=== PATIENT | male | born 1965 | race African-American/Black ===

== ENCOUNTER 2018-02-18 16:01 | Inpatient (IN) | payer OTHER ==
[2018-02-18] MEDS ORDERED: GLUCOSE GEL 15 GRAM TUBE PO ×2 (17:00)
[2018-02-18] MEDS ORDERED: NACL 0.9% 3 ML SYG IV (17:00)
[2018-02-18] MEDS ORDERED: GLUCOSE GEL 15 GRAM TUBE BUCCAL (17:00)
[2018-02-18] MEDS ORDERED: GLUCAGON 1 MG INJ IM (17:00)
[2018-02-18] MEDS ORDERED: DEXTROSE 50% 50 ML SYRINGE IV ×2 (17:00)
[2018-02-18] MEDS: OXYCODONE/ACETAMINOPHEN (5/325) TAB PO (17:37)
[2018-02-18] MEDS: INSULIN ASPART [NOVOLOG] 3 ML PEN SC ×3 (17:41→20:20)
[2018-02-18 17:47] LABS: ADD MAN DIFF? NO
[2018-02-18 17:49] LABS: BASOPHILS % 0.7 % (0.0-2.0); EOSINOPHILS # 0.2 10^3/ul (0.0-0.5); EOSINOPHILS % 3.7 % (0.0-7.0); HEMATOCRIT 38.8 % (42.0-52.0); HEMOGLOBIN 13.1 g/dl (14.0-18.0); LYMPHOCYTES # 2.6 10^3/ul (0.8-2.9); MEAN CORPUSCULAR HEMOGLOBIN 29.7 pg (29.0-33.0); MEAN CORPUSCULAR HGB CONC 33.8 g/dl (32.0-37.0); MEAN PLATELET VOLUME 9.2 fl (7.4-10.4); MONOCYTE # 0.6 10^3/ul (0.3-0.9); MONOCYTES % 11.2 % (0.0-11.0); NEUTROPHIL # 2.2 10^3/ul (1.6-7.5); NEUTROPHILS % 38.2 % (39.0-77.0); PLATELET COUNT 260 10^3/UL (140-415); RED BLOOD COUNT 4.41 10^6/ul (4.70-6.10); RED CELL DISTRIBUTION WIDTH 12.6 % (11.5-14.5)
[2018-02-18 17:49] LABS: WHITE BLOOD COUNT 5.7 10^3/ul (4.8-10.8)
[2018-02-18 18:05] LABS: ALANINE AMINOTRANSFERASE 69 IU/L (13-69); ALBUMIN/GLOBULIN RATIO 1.25; ALKALINE PHOSPHATASE 94 IU/L (42-121); ANION GAP 13 (8-16); ASPARTATE AMINO TRANSFERASE 33 IU/L (15-46); BLOOD UREA NITROGEN 18 mg/dl (7-20); CALCIUM 9.2 mg/dl (8.4-10.2); CARBON DIOXIDE 29 mmol/L (21-31); CHLORIDE 97 mmol/L (97-110); CREATININE 0.69 mg/dl (0.61-1.24); GLUCOSE 365 mg/dl (70-220); POTASSIUM 4.3 mmol/L (3.5-5.1); SODIUM 135 mmol/L (135-144); TOTAL PROTEIN 7.2 g/dl (6.1-8.1)
[2018-02-18] MEDS: FAMOTIDINE 20 MG TAB PO (20:19)
[2018-02-18] MEDS: INSULIN GLARGINE [LANtus] 3 ML PEN SC (20:24)
[2018-02-18] MEDS ORDERED: VANCOMYCIN IV PER PHARMACY XX (20:30)
[2018-02-18 21:17] LABS: C-REACTIVE PROTEIN < 0.5 mg/dl (0.0-0.9)
[2018-02-18] MEDS: VANCOMYCIN 2 GM in SOD CHLORIDE 0.9% 500 ML IVPB (21:42)
[2018-02-18] MEDS: MUPIROCIN 2% 22 GM OINT TOP (21:42)
[2018-02-18] MEDS: oxyCODONE (CR) 15 MG TAB [oxyCONTIN] PO (22:01)
[2018-02-18 22:37] LABS: ERYTHROCYTE SEDIMENTATION RATE 18 mm/Hr (0-20)
[2018-02-19] MEDS: ACCU-CHEK XX (02:00)
[2018-02-19 06:11] LABS: ADD MAN DIFF? NO
[2018-02-19 06:19] LABS: BASOPHILS % 0.6 % (0.0-2.0); EOSINOPHILS # 0.2 10^3/ul (0.0-0.5); EOSINOPHILS % 3.3 % (0.0-7.0); HEMATOCRIT 39.8 % (42.0-52.0); HEMOGLOBIN 13.4 g/dl (14.0-18.0); LYMPHOCYTES # 3.2 10^3/ul (0.8-2.9); LYMPHOCYTES % 50.2 % (15.0-51.0); MEAN CORPUSCULAR HGB CONC 33.7 g/dl (32.0-37.0); MEAN PLATELET VOLUME 9.4 fl (7.4-10.4); MONOCYTE # 0.8 10^3/ul (0.3-0.9); MONOCYTES % 12.1 % (0.0-11.0); NEUTROPHIL # 2.2 10^3/ul (1.6-7.5); NEUTROPHILS % 33.6 % (39.0-77.0); PLATELET COUNT 260 10^3/UL (140-415); RED BLOOD COUNT 4.47 10^6/ul (4.70-6.10); RED CELL DISTRIBUTION WIDTH 12.7 % (11.5-14.5)
[2018-02-19 06:19] LABS: WHITE BLOOD COUNT 6.4 10^3/ul (4.8-10.8)
[2018-02-19] MEDS: oxyCODONE (CR) 15 MG TAB [oxyCONTIN] PO ×3 (06:19→22:20)
[2018-02-19 06:41] LABS: ALANINE AMINOTRANSFERASE 66 IU/L (13-69); ALBUMIN 3.8 g/dl (3.3-4.9); ALBUMIN/GLOBULIN RATIO 1.11; ALKALINE PHOSPHATASE 92 IU/L (42-121); ANION GAP 15 (8-16); ASPARTATE AMINO TRANSFERASE 36 IU/L (15-46); BILIRUBIN,INDIRECT 0.1 mg/dl (0-1.1); BILIRUBIN,TOTAL 0.1 mg/dl (0.2-1.3); BLOOD UREA NITROGEN 24 mg/dl (7-20); CALCIUM 9.2 mg/dl (8.4-10.2); CARBON DIOXIDE 28 mmol/L (21-31); CHLORIDE 100 mmol/L (97-110); CREATININE 0.88 mg/dl (0.61-1.24); GLUCOSE 341 mg/dl (70-220); POTASSIUM 4.8 mmol/L (3.5-5.1); SODIUM 138 mmol/L (135-144); TOTAL PROTEIN 7.2 g/dl (6.1-8.1)
[2018-02-19] MEDS: INSULIN ASPART [NOVOLOG] 3 ML PEN SC ×7 (07:40→20:24)
[2018-02-19] MEDS: LISINOPRIL 10 MG TAB PO (08:15)
[2018-02-19] MEDS: ASPIRIN (EC) 81 MG TAB PO (08:15)
[2018-02-19] MEDS: FAMOTIDINE 20 MG TAB PO ×2 (08:15→20:23)
[2018-02-19] MEDS: OXYCODONE/ACETAMINOPHEN (5/325) TAB PO ×2 (08:16→20:19)
[2018-02-19] MEDS: ENOXAPARIN 40 MG/0.4 ML SYG SC (08:18)
[2018-02-19] MEDS: MUPIROCIN 2% 22 GM OINT TOP ×3 (08:18→22:21)
[2018-02-19] MEDS ORDERED: VANCOMYCIN 1.75 GM in SOD CHLORIDE 0.9% 500 ML IVPB (09:00)
[2018-02-19] MEDS ORDERED: VANCOMYCIN 1.5 GM in SOD CHLORIDE 0.9% 250 ML IVPB (10:30)
[2018-02-19] MEDS: SODIUM HYPOCHLORITE 1/40% 1L IRRIG IRR ×3 (10:40→22:21)
[2018-02-19] MEDS: VANCOMYCIN 1.25 GM in SOD CHLORIDE 0.9% 250 ML IVPB ×2 (10:57→18:17)
[2018-02-19] MEDS: DIPHENHYDRAMINE 25 MG CAP PO ×2 (11:20→20:19)
[2018-02-19] MEDS: LEVOFLOXACIN 500 MG TAB PO (14:40)
[2018-02-19] MEDS: INSULIN GLARGINE [LANtus] 3 ML PEN SC (20:21)
[2018-02-20] MEDS: ACCU-CHEK XX (02:00)
[2018-02-20 02:08] LABS: VANCOMYCIN,TROUGH 15.2 ug/ml (10.0-20.0)
[2018-02-20] MEDS: VANCOMYCIN 1.25 GM in SOD CHLORIDE 0.9% 250 ML IVPB ×3 (02:47→18:14)
[2018-02-20] MEDS: LEVOFLOXACIN 500 MG TAB PO (05:47)
[2018-02-20] MEDS: oxyCODONE (CR) 15 MG TAB [oxyCONTIN] PO ×3 (05:48→23:05)
[2018-02-20 06:03] LABS: BLOOD UREA NITROGEN 34 mg/dl (7-20)
[2018-02-20 06:03] LABS: CREATININE 0.97 mg/dl (0.61-1.24)
[2018-02-20] MEDS: INSULIN ASPART [NOVOLOG] 3 ML PEN SC ×7 (07:55→21:00)
[2018-02-20] MEDS: LISINOPRIL 10 MG TAB PO (08:23)
[2018-02-20] MEDS: ASPIRIN (EC) 81 MG TAB PO (08:24)
[2018-02-20] MEDS: ENOXAPARIN 40 MG/0.4 ML SYG SC (08:25)
[2018-02-20] MEDS: FAMOTIDINE 20 MG TAB PO ×2 (08:31→21:00)
[2018-02-20] MEDS: DIPHENHYDRAMINE 25 MG CAP PO (08:41)
[2018-02-20] MEDS: SODIUM HYPOCHLORITE 1/40% 1L IRRIG IRR ×2 (11:40→23:06)
[2018-02-20] MEDS: MUPIROCIN 2% 22 GM OINT TOP ×2 (11:40→23:06)
[2018-02-20] MEDS: OXYCODONE/ACETAMINOPHEN (5/325) TAB PO (20:24)
[2018-02-20] MEDS: INSULIN GLARGINE [LANtus] 3 ML PEN SC (20:29)
[2018-02-21] MEDS: ACCU-CHEK XX (01:29)
[2018-02-21] MEDS: VANCOMYCIN 1.25 GM in SOD CHLORIDE 0.9% 250 ML IVPB ×2 (02:56→10:30)
[2018-02-21] MEDS: LEVOFLOXACIN 500 MG TAB PO (05:29)
[2018-02-21] MEDS: oxyCODONE (CR) 15 MG TAB [oxyCONTIN] PO ×3 (05:30→21:34)
[2018-02-21 06:22] LABS: HEMOGLOBIN A1C 11.3 % (0-5.9)
[2018-02-21 06:31] LABS: ANION GAP 12 (8-16); BLOOD UREA NITROGEN 35 mg/dl (7-20); CALCIUM 9.2 mg/dl (8.4-10.2); CARBON DIOXIDE 30 mmol/L (21-31); CHLORIDE 101 mmol/L (97-110); CREATININE 0.99 mg/dl (0.61-1.24); GLUCOSE 198 mg/dl (70-220); MAGNESIUM 1.7 mg/dl (1.7-2.5); PHOSPHORUS 3.9 mg/dl (2.5-4.9); POTASSIUM 4.6 mmol/L (3.5-5.1); SODIUM 138 mmol/L (135-144)
[2018-02-21] MEDS: INSULIN ASPART [NOVOLOG] 3 ML PEN SC ×7 (07:53→21:38)
[2018-02-21] MEDS: OXYCODONE/ACETAMINOPHEN (5/325) TAB PO ×2 (08:08→19:59)
[2018-02-21] MEDS: LISINOPRIL 10 MG TAB PO (08:08)
[2018-02-21] MEDS: ASPIRIN (EC) 81 MG TAB PO (08:09)
[2018-02-21] MEDS: FAMOTIDINE 20 MG TAB PO ×2 (08:09→19:58)
[2018-02-21] MEDS: DIPHENHYDRAMINE 25 MG CAP PO ×2 (08:09→19:58)
[2018-02-21] MEDS: ENOXAPARIN 40 MG/0.4 ML SYG SC (08:27)
[2018-02-21] MEDS: SODIUM HYPOCHLORITE 1/40% 1L IRRIG IRR ×2 (12:13→21:34)
[2018-02-21] MEDS: MUPIROCIN 2% 22 GM OINT TOP ×2 (12:13→21:34)
[2018-02-21] MEDS: LIDOCAINE 1% (MPF) 5 ML VIAL SC (15:24)
[2018-02-21] MEDS: AMPICILLIN 1 GM/NS (PMX) 50 ML IVPB ×2 (15:39→21:34)
[2018-02-21] MEDS: INSULIN GLARGINE [LANtus] 3 ML PEN SC (21:37)
[2018-02-22] MEDS: OXYCODONE/ACETAMINOPHEN (5/325) TAB PO ×2 (01:51→13:58)
[2018-02-22] MEDS: ACCU-CHEK XX (02:32)
[2018-02-22] MEDS: AMPICILLIN 1 GM/NS (PMX) 50 ML IVPB ×3 (06:53→21:19)
[2018-02-22] MEDS: oxyCODONE (CR) 15 MG TAB [oxyCONTIN] PO ×3 (06:53→21:19)
[2018-02-22] MEDS: SODIUM HYPOCHLORITE 1/40% 1L IRRIG IRR ×2 (08:38→21:21)
[2018-02-22] MEDS: FAMOTIDINE 20 MG TAB PO ×2 (08:38→21:19)
[2018-02-22] MEDS: ASPIRIN (EC) 81 MG TAB PO (08:38)
[2018-02-22] MEDS: MUPIROCIN 2% 22 GM OINT TOP ×2 (08:39→21:22)
[2018-02-22] MEDS: INSULIN ASPART [NOVOLOG] 3 ML PEN SC ×7 (08:41→20:12)
[2018-02-22] MEDS: ENOXAPARIN 40 MG/0.4 ML SYG SC (08:42)
[2018-02-22] MEDS: LISINOPRIL 10 MG TAB PO (08:45)
[2018-02-22] MEDS: metFORMIN 500 MG TAB PO (10:30)
[2018-02-22] MEDS: INSULIN GLARGINE [LANtus] 3 ML PEN SC (20:14)
[2018-02-23] MEDS: DIPHENHYDRAMINE 25 MG CAP PO ×2 (00:11→08:09)
[2018-02-23] MEDS: OXYCODONE/ACETAMINOPHEN (5/325) TAB PO (00:50)
[2018-02-23] MEDS: ACCU-CHEK XX (01:41)
[2018-02-23] MEDS: AMPICILLIN 1 GM/NS (PMX) 50 ML IVPB (05:55)
[2018-02-23] MEDS: oxyCODONE (CR) 15 MG TAB [oxyCONTIN] PO (05:56)
[2018-02-23 07:03] LABS: ANION GAP 15 (8-16); BLOOD UREA NITROGEN 33 mg/dl (7-20); CALCIUM 9.2 mg/dl (8.4-10.2); CARBON DIOXIDE 28 mmol/L (21-31); CHLORIDE 100 mmol/L (97-110); CREATININE 0.85 mg/dl (0.61-1.24); GLUCOSE 260 mg/dl (70-220); MAGNESIUM 1.7 mg/dl (1.7-2.5); POTASSIUM 4.3 mmol/L (3.5-5.1); SODIUM 139 mmol/L (135-144)
[2018-02-23] MEDS: INSULIN ASPART [NOVOLOG] 3 ML PEN SC ×4 (07:55→12:11)
[2018-02-23] MEDS ORDERED: glipiZIDE 5 MG TAB PO (08:00)
[2018-02-23] MEDS: LISINOPRIL 10 MG TAB PO (08:07)
[2018-02-23] MEDS: ASPIRIN (EC) 81 MG TAB PO (08:07)
[2018-02-23] MEDS: SODIUM HYPOCHLORITE 1/40% 1L IRRIG IRR (08:08)
[2018-02-23] MEDS: MUPIROCIN 2% 22 GM OINT TOP (08:08)
[2018-02-23] MEDS: FAMOTIDINE 20 MG TAB PO (08:08)
[2018-02-23] MEDS: ENOXAPARIN 40 MG/0.4 ML SYG SC (08:10)
== END 2018-02-23 14:25 | disposition home health service (06) | DRG 623 ==
LOC: MS2 16:01
PROVIDERS: Internal Medicine
PROC: 0JBQ0ZZ Excision of Right Foot Subcutaneous Tissue and Fascia, Open Approach (ICD-10-PCS; principal; 2018-02-18)
PROC: 0HBNXZZ Excision of Left Foot Skin, External Approach (ICD-10-PCS; 2018-02-18)
PROC: 0HDRXZZ Extraction of Toe Nail, External Approach (ICD-10-PCS; 2018-02-18)
PROC: 02HV33Z Insertion of Infusion Device into Superior Vena Cava, Percutaneous Approach (ICD-10-PCS; 2018-02-21)
DX: E11.621 Type 2 diabetes mellitus with foot ulcer (principal); M86.672 Other chronic osteomyelitis, left ankle and foot; M86.671 Other chronic osteomyelitis, right ankle and foot; E11.65 Type 2 diabetes mellitus with hyperglycemia; E11.69 Type 2 diabetes mellitus with other specified complication; G89.29 Other chronic pain; M54.9 Dorsalgia, unspecified; I73.9 Peripheral vascular disease, unspecified; Z89.421 Acquired absence of other right toe(s); Z79.891 Long term (current) use of opiate analgesic
CPT/HCPCS: 36569; 71045; 73630; 73718; 76937; 80048; 80053; 80202; 82565; 82962; 83036; 83735; 84100; 84520; 85025; 85651; 86140; 87070

== ENCOUNTER 2018-03-30 07:13 | Emergency (ER) | payer SELFPAY, OTHER ==
[2018-03-30 08:48] LABS: ADD MAN DIFF? NO
[2018-03-30 08:54] LABS: WHITE BLOOD COUNT 5.3 10^3/ul (4.8-10.8)
[2018-03-30 08:54] LABS: BASOPHILS % 0.4 % (0.0-2.0); EOSINOPHILS # 0.2 10^3/ul (0.0-0.5); HEMATOCRIT 42.2 % (42.0-52.0); HEMOGLOBIN 14.4 g/dl (14.0-18.0); LYMPHOCYTES # 1.8 10^3/ul (0.8-2.9); LYMPHOCYTES % 34.8 % (15.0-51.0); MEAN CORPUSCULAR HEMOGLOBIN 29.6 pg (29.0-33.0); MEAN CORPUSCULAR HGB CONC 34.1 g/dl (32.0-37.0); MEAN CORPUSCULAR VOLUME 86.8 fl (82.0-101.0); MEAN PLATELET VOLUME 9.1 fl (7.4-10.4); MONOCYTE # 0.6 10^3/ul (0.3-0.9); MONOCYTES % 10.8 % (0.0-11.0); NEUTROPHIL # 2.7 10^3/ul (1.6-7.5); PLATELET COUNT 209 10^3/UL (140-415); RED BLOOD COUNT 4.86 10^6/ul (4.70-6.10); RED CELL DISTRIBUTION WIDTH 12.5 % (11.5-14.5)
[2018-03-30 09:14] LABS: LACTIC ACID 1.1 mmol/L (0.5-2.0)
[2018-03-30] MEDS: SODIUM CHLORIDE 0.9% 1L BAG IV* (09:15)
[2018-03-30 09:16] LABS: ALANINE AMINOTRANSFERASE 67 IU/L (13-69); ALBUMIN 3.6 g/dl (3.3-4.9); ALBUMIN/GLOBULIN RATIO 1.16; ALKALINE PHOSPHATASE 119 IU/L (42-121); ANION GAP 9 (8-16); ASPARTATE AMINO TRANSFERASE 36 IU/L (15-46); BILIRUBIN,INDIRECT 0.1 mg/dl (0-1.1); BILIRUBIN,TOTAL 0.1 mg/dl (0.2-1.3); BLOOD UREA NITROGEN 20 mg/dl (7-20); CALCIUM 9.3 mg/dl (8.4-10.2); CARBON DIOXIDE 31 mmol/L (21-31); CHLORIDE 99 mmol/L (97-110); GLUCOSE 383 mg/dl (70-220); POTASSIUM 4.2 mmol/L (3.5-5.1); SODIUM 135 mmol/L (135-144); TOTAL PROTEIN 6.7 g/dl (6.1-8.1)
[2018-03-30] MEDS: KETOROLAC 15 MG INJ IV (09:53)
[2018-03-30 10:06] LABS: ADD UMIC YES; UR ASCORBIC ACID NEGATIVE (NEGATIVE); UR BILIRUBIN (Dip) NEGATIVE (NEGATIVE); UR BLOOD (Dip) NEGATIVE (NEGATIVE); UR CLARITY CLEAR (CLEAR); UR COLOR STRAW (YELLOW); UR GLUCOSE (Dip) 3+ mg/dL (NEGATIVE); UR KETONES (Dip) TRACE mg/dL (NEGATIVE); UR LEUKOCYTE ESTERASE (Dip) NEGATIVE Leu/ul (NEGATIVE); UR NITRITE (Dip) NEGATIVE (NEGATIVE); UR RBC 1 /HPF (0-5); UR TOTAL PROTEIN (Dip) 1+ mg/dl (NEGATIVE); UR UROBILINOGEN (Dip) NEGATIVE (NEGATIVE); UR WBC 0 /HPF (0-5)
[2018-03-30 10:33] LABS: LACTIC ACID 0.9 mmol/L (0.5-2.0)
[2018-03-30] MEDS: ALTEPLASE (CATHFLO) 2 MG INJ CATHETER (10:57)
== END 2018-03-30 14:18 | disposition home or self-care (01) ==
LOC: E/R 07:13
DX: M79.671 Pain in right foot (principal); E11.8 Type 2 diabetes mellitus with unspecified complications; R06.02 Shortness of breath; F17.210 Nicotine dependence, cigarettes, uncomplicated; Z79.4 Long term (current) use of insulin; Z79.82 Long term (current) use of aspirin; Z87.39 Personal history of other diseases of the musculoskeletal system and connective tissue
CPT/HCPCS: 36415; 71045; 73630; 80053; 81001; 82962; 83605; 85025; 87040; 87086; 93005; 96374; 99285-25

== ENCOUNTER 2018-04-07 06:34 | Emergency (ER) | payer SELFPAY, OTHER | END 2018-04-07 09:34 | disposition home or self-care (01) | LOC: E/R 06:34 | DX: Z45.2 Encounter for adjustment and management of vascular access device (principal); F17.210 Nicotine dependence, cigarettes, uncomplicated; E11.9 Type 2 diabetes mellitus without complications; Z79.4 Long term (current) use of insulin | CPT/HCPCS: 99282 ==